=== PATIENT | female | born 1960 | race Caucasian/White ===

== ENCOUNTER 2022-06-28 10:45 | Emergency (ER) | payer SELFPAY | END 2022-06-28 12:39 | disposition home or self-care (01) | LOC: NAV ERS 10:45 | DX: U07.1 COVID-19 (principal); J06.9 Acute upper respiratory infection, unspecified | CPT/HCPCS: 71045; 87804; U0003; U0005 ==

== ENCOUNTER 2024-08-12 11:31 | Emergency (ER) | payer OTHER, SELFPAY | END 2024-08-12 13:05 | disposition home or self-care (01) | LOC: NAV ERS 11:31 | DX: B34.9 Viral infection, unspecified (principal) | CPT/HCPCS: 87428; 99283 ==